=== PATIENT | male | born 1955 | race Caucasian/White ===

== ENCOUNTER 2019-08-31 15:42 | Emergency (ER) | payer MEDICAID, MEDICARE ==
[~2019-08-31] VITALS: Ht 165.1 cm; Wt 103.0 kg
[~2019-08-31 15:42] MED LIST: ALBU6.7H IH; AMLO10TA80 PO; ATOR40TA70 PO; GUAI600T44 PO; LEVE500T9 PO; LOSA25TA26 PO; MIRT30TA PO; P50 PO; PULM50 HHN; QUET300T2 PO; TUSSL PO
[2019-08-31] MEDS ORDERED: ONDANSETRON HCL 4MG/2ML INJ IV STA (16:01)
[2019-08-31] MEDS ORDERED: MORPHINE SULFATE 4 MG/ML CPJ (NOT FOR IM USE) IV STA (16:01)
[2019-08-31 16:32] LABS: BASOPHILS % 0.7 % (0.0-2.0); EOSINOPHILS % 1.2 % (0.0-5.0); HEMATOCRIT. 44.1 % (42.0-52.0); HEMOGLOBIN. 14.7 g/dL (14.0-18.0); LYMPHOCYTES % 30.1 % (20.0-50.0); MEAN CORPUSCULAR HEMOGLOBIN 34.2 pg (28.0-32.0); MEAN CORPUSCULAR VOLUME 102.9 fL (80.0-94.0); MONOCYTES % 10.4 % (2.0-8.0); NEUTROPHILS % 57.6 % (40.0-76.0); PLATELET 223 x1000/uL (130-400); RED BLOOD CELL COUNT 4.28 mill/uL (4.7-6.1); RED CELL DISTRIBUTION WIDTH 15.5 % (11.6-14.6)
[2019-08-31 16:35] LABS: CHLORIDE 108 mEq/L (98-107); PROTHROMBIN TIME 10.5 sec (9.6-11.0)
[2019-08-31 16:39] LABS: ETHANOL BLOOD 184 mg/dL
[2019-08-31] MEDS ORDERED: HYDROCODONE/ACETAMINOPHEN 5/325MG TABLET PO ONE (17:30)
[2019-08-31] MEDS ORDERED: ASPIRIN 81MG TABLET PO ONE (17:30)
[2019-08-31 17:38] LABS: *BARBITURATES SCREEN URINE NEGATIVE (NEGATIVE)
[2019-08-31 17:39] LABS: *AMPHETAMINES SCREEN URINE NEGATIVE (NEGATIVE); *BENZODIAZEPINES SCREEN URINE NEGATIVE (NEGATIVE); *COCAINE SCREEN URINE NEGATIVE (NEGATIVE); METHADONE URINE SCREEN NEGATIVE (NEGATIVE); OPIATES URINE SCREEN NEGATIVE (NEGATIVE)
[2019-08-31 17:40] LABS: CANNABINOID URINE SCREEN NEGATIVE (NEGATIVE); PHENCYCLIDINE URINE SCREEN NEGATIVE (NEGATIVE)
[2019-08-31] MEDS ORDERED: IBUPROFEN 800MG TABLET PO ONE (21:45)
[2019-09-01 09:57] VITALS: BP 163/76
[2019-09-07] MEDS ORDERED: PANT40TA4 PO (16:10)
== END 2019-09-01 12:16 | disposition home or self-care (01) ==
LOC: ER 15:51
DX: F10.129 Alcohol abuse with intoxication, unspecified (principal); M79.661 Pain in right lower leg; Y90.6 Blood alcohol level of 120-199 mg/100 ml; Z88.6 Allergy status to analgesic agent; Z88.3 Allergy status to other anti-infective agents; Z91.041 Radiographic dye allergy status
CPT/HCPCS: 36415; 70450; 71045; 80053; 80305; 80320; 83690; 84484; 85025; 85610; 93005; 96374; 96375; 99284; J2270; J2405; G0480

== ENCOUNTER 2019-09-05 16:28 | Inpatient (IN) | payer MEDICARE, MEDICAID ==
[~2019-09-05] VITALS: Ht 162.6 cm; Wt 104.8 kg
[2019-09-05] MEDS ORDERED: SODIUM CHLORIDE 0.9% 1,000 ML IV ONE (17:27)
[2019-09-05] MEDS ORDERED: DIAZEPAM 5 MG/ML 2ML CPJ IV ONE (17:30)
[2019-09-05 18:40] LABS: BASOPHILS % 0.6 % (0.0-2.0); EOSINOPHILS % 0.2 % (0.0-5.0); HEMATOCRIT. 47.1 % (42.0-52.0); HEMOGLOBIN. 15.7 g/dL (14.0-18.0); LYMPHOCYTES % 16.9 % (20.0-50.0); MEAN CORPUSCULAR HEMOGLOBIN 33.9 pg (28.0-32.0); MEAN CORPUSCULAR VOLUME 101.6 fL (80.0-94.0); MONOCYTES % 9.8 % (2.0-8.0); NEUTROPHILS % 72.5 % (40.0-76.0); PLATELET 204 x1000/uL (130-400); RED BLOOD CELL COUNT 4.64 mill/uL (4.7-6.1); RED CELL DISTRIBUTION WIDTH 15.5 % (11.6-14.6)
[2019-09-05 18:45] LABS: CHLORIDE 101 mEq/L (98-107)
[2019-09-05 18:48] LABS: ETHANOL BLOOD < 10 mg/dL
[2019-09-05] MEDS ORDERED: ACETAMINOPHEN 650MG SUPP PR PRN (22:45)
[2019-09-05] MEDS ORDERED: ACETAMINOPHEN 325MG TABLET PO PRN (22:45)
[2019-09-05] MEDS ORDERED: GUAIFENESIN 200MG/10ML SUGAR FREE UDC PO PRN (22:45)
[2019-09-05] MEDS ORDERED: ACETAMINOPHEN 650MG/20.3ML UDC GT PRN (22:45)
[2019-09-05] MEDS ORDERED: DIPHENHYDRAMINE 50MG/ML VIAL IV PRN (22:45)
[2019-09-05] MEDS ORDERED: IPRATROPIUM/ALBUTEROL 0.5-3(2.5)MG/3ML NEB HHN PRN (22:45)
[2019-09-05] MEDS ORDERED: MAGNESIUM/ALUMINUM HYDROXIDE/SIMETHICONE 30ML UDC PO PRN (22:45)
[2019-09-05] MEDS ORDERED: NA PHOS,M-B/NA PHOS,DI-BA ENEMA 118ML PR PRN (22:45)
[2019-09-05] MEDS ORDERED: ONDANSETRON HCL 4MG/2ML INJ IV PRN (22:45)
[2019-09-05 22:49] VITALS: BP_SYST 152; BP_SYST 153; BP_DIAS 83
[2019-09-05] MEDS: HYDROCODONE/ACETAMINOPHEN 5/325MG TABLET PO PRN (23:44)
[2019-09-06] MEDS: DEXT 5%/0.45% NACL 1000ML 1,000 ML IV SCH ×3 (01:59→18:44)
[2019-09-06 04:00] VITALS: BP 130/52
[2019-09-06] MEDS ORDERED: LORA0.5T2 PO (04:37)
[2019-09-06] MEDS ORDERED: CLON0.1T PO (04:38)
[2019-09-06] MEDS ORDERED: ATEN-42 PO (04:41)
[2019-09-06] MEDS ORDERED: QUET100T33 PO (04:41)
[2019-09-06] MEDS ORDERED: MECL-109 PO (04:43)
[2019-09-06] MEDS ORDERED: BENA20TA10 PO (04:44)
[2019-09-06] MEDS ORDERED: PANT40TA4 PO (04:46)
[2019-09-06] MEDS: SODIUM CHLORIDE 0.9% INJ 3ML FLUSH IVF SCH ×3 (05:33→21:42)
[2019-09-06] MEDS: CHLORDIAZEPOXIDE 25MG CAPSULE PO SCH ×3 (05:34→22:09)
[2019-09-06] MEDS: HYDROCODONE/ACETAMINOPHEN 5/325MG TABLET PO PRN (05:35)
[2019-09-06 06:27] LABS: CHLORIDE 103 mEq/L (98-107)
[2019-09-06 06:34] LABS: LDL CHOLESTEROL 82 mg/dL (5-100)
[2019-09-06 06:35] LABS: CREATINE KINASE 264 IU/L (39-308); HDL CHOLESTEROL 50 mg/dL (40-59)
[2019-09-06 06:38] LABS: CREATINE KINASE MB FRACTION 2.4 ng/mL (0.5-3.6)
[2019-09-06] MEDS: LORAZEPAM 2MG/ML CPJ IV PRN ×3 (06:50→20:34)
[2019-09-06 07:00] LABS: BASOPHILS % 0.6 % (0.0-2.0); HEMATOCRIT. 44.7 % (42.0-52.0); HEMOGLOBIN. 15.1 g/dL (14.0-18.0); LYMPHOCYTES % 30.4 % (20.0-50.0); MEAN CORPUSCULAR HEMOGLOBIN 34.4 pg (28.0-32.0); MEAN PLATELET VOLUME 8.5 fl (7.4-10.4); MONOCYTES % 11.1 % (2.0-8.0); NEUTROPHILS % 56.9 % (40.0-76.0); PLATELET 195 x1000/uL (130-400); RED BLOOD CELL COUNT 4.38 mill/uL (4.7-6.1); RED CELL DISTRIBUTION WIDTH 15.6 % (11.6-14.6)
[2019-09-06 08:00] VITALS: BP 141/70
[2019-09-06] MEDS: HYDROCODONE/ACETAMINOPHEN 10/325MG TABLET PO PRN ×3 (09:36→21:39)
[2019-09-06] MEDS: FOLIC ACID 1MG TABLET PO SCH (09:37)
[2019-09-06] MEDS: DOCUSATE SODIUM 100MG CAPSULE PO PRN ×2 (09:37→16:57)
[2019-09-06] MEDS: THIAMINE HCL 100MG TABLET PO SCH (09:37)
[2019-09-06] MEDS: ENOXAPARIN 30MG/0.3ML SYR SUBCUT SCH ×2 (09:38→20:35)
[2019-09-06] MEDS ORDERED: POTASSIUM CHLORIDE 20MEQ TABLET SR PO SCH (11:15)
[2019-09-06] MEDS ORDERED: BISACODYL 5MG TABLET PO SCH (11:15)
[2019-09-06 11:56] VITALS: BP 153/68
[2019-09-06] MEDS ORDERED: LACTULOSE 20G/30ML UDC PO SCH (12:00)
[2019-09-06] MEDS: FAMOTIDINE 20MG/2ML VIAL IV SCH (12:07)
[2019-09-06 16:00] VITALS: BP 133/70
[2019-09-07] MEDS: HYDROCODONE/ACETAMINOPHEN 10/325MG TABLET PO PRN ×4 (04:50→22:35)
[2019-09-07] MEDS: CHLORDIAZEPOXIDE 25MG CAPSULE PO SCH (05:24)
[2019-09-07] MEDS: DEXT 5%/0.45% NACL 1000ML 1,000 ML IV SCH ×2 (05:25→16:35)
[2019-09-07] MEDS: SODIUM CHLORIDE 0.9% INJ 3ML FLUSH IVF SCH ×3 (05:25→22:36)
[2019-09-07] MEDS: LORAZEPAM 2MG/ML CPJ IV PRN ×3 (06:47→18:49)
[2019-09-07] MEDS ORDERED: DIATR MEGLU/DIATRIZOATE SOLN 30ML PO NR (09:00)
[2019-09-07] MEDS: FOLIC ACID 1MG TABLET PO SCH (09:28)
[2019-09-07] MEDS: THIAMINE HCL 100MG TABLET PO SCH (09:28)
[2019-09-07] MEDS: FAMOTIDINE 20MG/2ML VIAL IV SCH (09:28)
[2019-09-07] MEDS: ENOXAPARIN 30MG/0.3ML SYR SUBCUT SCH ×2 (09:28→22:36)
[2019-09-07] MEDS: PANTOPRAZOLE 40MG DR TABLET PO SCH (09:32)
[2019-09-07 10:16] LABS: EOSINOPHILS % 2.5 % (0.0-5.0); HEMATOCRIT. 42.7 % (42.0-52.0); HEMOGLOBIN. 14.3 g/dL (14.0-18.0); MEAN CORPUSCULAR HEMOGLOBIN 34.3 pg (28.0-32.0); MEAN CORPUSCULAR VOLUME 102.7 fL (80.0-94.0); MEAN PLATELET VOLUME 8.3 fl (7.4-10.4); MONOCYTES % 10.7 % (2.0-8.0); NEUTROPHILS % 56.8 % (40.0-76.0); PLATELET 161 x1000/uL (130-400); RED BLOOD CELL COUNT 4.16 mill/uL (4.7-6.1); RED CELL DISTRIBUTION WIDTH 15.1 % (11.6-14.6)
[2019-09-07 10:21] LABS: INR 1.1; PROTHROMBIN TIME 10.8 sec (9.6-11.0)
[2019-09-07] MEDS ORDERED: BARIUM SULFATE 450ML ORAL SUSP PO NR (10:30)
[2019-09-07 10:34] LABS: CHLORIDE 106 mEq/L (98-107)
[2019-09-07] MEDS ORDERED: DIATR MEGLU/DIATRIZOATE SOLN 30ML PO SCH (13:00)
[2019-09-07] MEDS ORDERED: PANT40TA4 PO (16:10)
[2019-09-07 20:00] VITALS: BP 156/69
[2019-09-08] VITALS: BP 143/81
[2019-09-08] MEDS: LORAZEPAM 2MG/ML CPJ IV PRN ×4 (00:50→23:38)
[2019-09-08] MEDS: DEXT 5%/0.45% NACL 1000ML 1,000 ML IV SCH ×3 (00:50→23:39)
[2019-09-08 04:00] VITALS: BP 150/84
[2019-09-08] MEDS: SODIUM CHLORIDE 0.9% INJ 3ML FLUSH IVF SCH ×3 (05:10→20:41)
[2019-09-08 06:51] LABS: HEMATOCRIT 42.4 % (42.0-52.0); HEMOGLOBIN 14.4 g/dL (14.0-18.0); MEAN CORPUSCULAR HEMOGLOBIN 34.5 pg (28.0-32.0); MEAN CORPUSCULAR VOLUME 102.1 fL (80.0-94.0); PLATELET 156 x1000/uL (130-400); RED BLOOD CELL COUNT 4.16 mill/uL (4.7-6.1); RED CELL DISTRIBUTION WIDTH 15.2 % (11.6-14.6)
[2019-09-08 06:52] LABS: CHLORIDE 106 mEq/L (98-107)
[2019-09-08 08:00] VITALS: BP 138/82
[2019-09-08] MEDS: PANTOPRAZOLE 40MG DR TABLET PO SCH (08:40)
[2019-09-08] MEDS: THIAMINE HCL 100MG TABLET PO SCH (08:41)
[2019-09-08] MEDS: FOLIC ACID 1MG TABLET PO SCH (08:41)
[2019-09-08] MEDS: ENOXAPARIN 30MG/0.3ML SYR SUBCUT SCH ×3 (08:42→20:54)
[2019-09-08] MEDS: HYDROCODONE/ACETAMINOPHEN 10/325MG TABLET PO PRN ×3 (09:02→20:43)
[2019-09-08] MEDS: FAMOTIDINE 20MG/2ML VIAL IV SCH (09:36)
[2019-09-08 12:00] VITALS: BP 149/74
[2019-09-08 16:00] VITALS: BP 156/93
[2019-09-08 20:00] VITALS: BP 170/99
[2019-09-08] MEDS: CLONIDINE 0.1MG TABLET PO PRN (20:49)
[2019-09-09] VITALS: BP 161/79
[2019-09-09] MEDS: HYDROCODONE/ACETAMINOPHEN 10/325MG TABLET PO PRN ×3 (01:45→15:32)
[2019-09-09 03:52] VITALS: BP 140/75
[2019-09-09] MEDS: LORAZEPAM 2MG/ML CPJ IV PRN ×2 (05:31→11:38)
[2019-09-09] MEDS: SODIUM CHLORIDE 0.9% INJ 3ML FLUSH IVF SCH ×2 (05:31→14:00)
[2019-09-09 08:00] VITALS: BP 146/90
[2019-09-09] MEDS: FAMOTIDINE 20MG/2ML VIAL IV SCH (09:00)
[2019-09-09] MEDS: ENOXAPARIN 30MG/0.3ML SYR SUBCUT SCH ×2 (09:00→09:51)
[2019-09-09] MEDS: FOLIC ACID 1MG TABLET PO SCH (09:48)
[2019-09-09] MEDS: THIAMINE HCL 100MG TABLET PO SCH (09:48)
[2019-09-09 12:00] VITALS: BP 162/102
[2019-09-09] MEDS: CLONIDINE 0.1MG TABLET PO PRN (12:31)
[2019-09-09] MEDS: DEXT 5%/0.45% NACL 1000ML 1,000 ML IV SCH ×2 (14:30→16:44)
[2019-09-09 16:00] VITALS: BP 141/81
[2019-09-09 17:53] VITALS: BP 141/81
== END 2019-09-09 20:05 | disposition home or self-care (01) | DRG 392 ==
LOC: ER 16:36 → 7WST 20:23 → EDBEDREQ 20:28 → EDBEDREQTM 20:28 → ENRESERV 22:04
PROVIDERS: ADMIT Family Medicine; ATTEND Family Medicine
DX: K29.20 Alcoholic gastritis without bleeding (principal); F10.239 Alcohol dependence with withdrawal, unspecified; I10 Essential (primary) hypertension; J44.9 Chronic obstructive pulmonary disease, unspecified; F41.9 Anxiety disorder, unspecified; E87.6 Hypokalemia; F32.9 Major depressive disorder, single episode, unspecified; K70.0 Alcoholic fatty liver; K74.60 Unspecified cirrhosis of liver; Z59.0 Homelessness; Z88.9 Allergy status to unspecified drugs, medicaments and biological substances; Z88.8 Allergy status to other drugs, medicaments and biological substances; Z86.73 Personal history of transient ischemic attack (TIA), and cerebral infarction without residual deficits; Z88.1 Allergy status to other antibiotic agents; Z91.041 Radiographic dye allergy status; Z79.899 Other long term (current) drug therapy
CPT/HCPCS: 36415; 71045; 74176; 80048; 80061; 80076; 80320; 82550; 82553; 83605; 84484; 85027; 85651; 93005; 96361; 96374; 97162; 99285; C1893; J1650; J2060; J3490; J7030; G0480

== ENCOUNTER 2019-11-03 16:35 | Inpatient (IN) | payer MEDICARE, MEDICAID ==
[~2019-11-03] VITALS: Ht 157.5 cm; Wt 44.6 kg
[~2019-11-03 16:35] MED LIST changes: -ALBU6.7H IH; +ALBU6.7H11 IH; +ATEN-42 PO; +BENA20TA10 PO; +CLON0.1T PO; +LORA0.5T2 PO; +MECL-159 PO; +PANT40TA4 PO; +QUET100T33 PO
[2019-11-03] MEDS ORDERED: MORPHINE SULFATE 4 MG/ML CPJ (NOT FOR IM USE) IV STA (17:14)
[2019-11-03] MEDS ORDERED: ONDANSETRON HCL 4MG/2ML INJ IV STA (17:14)
[2019-11-03] MEDS ORDERED: SODIUM CHLORIDE 0.9% 1,000 ML IV ONE ×2 (17:14→18:07)
[2019-11-03 18:07] LABS: BASOPHILS % 0.9 % (0.0-2.0); EOSINOPHILS % 0.7 % (0.0-5.0); HEMATOCRIT. 46.8 % (42.0-52.0); HEMOGLOBIN. 15.5 g/dL (14.0-18.0); LYMPHOCYTES % 28.4 % (20.0-50.0); MEAN CORPUSCULAR HEMOGLOBIN 34.3 pg (28.0-32.0); MEAN CORPUSCULAR VOLUME 103.7 fL (80.0-94.0); MEAN PLATELET VOLUME 8.3 fl (7.4-10.4); MONOCYTES % 8.4 % (2.0-8.0); NEUTROPHILS % 61.6 % (40.0-76.0); PLATELET 207 x1000/uL (130-400); RED BLOOD CELL COUNT 4.51 mill/uL (4.7-6.1)
[2019-11-03 18:15] LABS: CHLORIDE 110 mEq/L (98-107)
[2019-11-03 18:19] LABS: ETHANOL BLOOD 153 mg/dL
[2019-11-03 18:20] LABS: D-DIMER 0.59 mg/L FEU (<0.50); PARTIAL THROMBOPLASTIN TIME 26.8 sec (23.4-31.0); PROTHROMBIN TIME 10.6 sec (9.6-11.0)
[2019-11-03 18:21] LABS: CLARITY URINE CLEAR (CLEAR); COLOR URINE YELLOW (YELLOW); KETONES URINE NEGATIVE (NEGATIVE); LEUKOCYTE ESTERASE URINE TRACE (NEGATIVE); NITRITE URINE NEGATIVE (NEGATIVE); OCCULT BLOOD URINE 1+ (NEGATIVE); PH URINE 6.5 (4.5-8.0); PROTEIN URINE NEGATIVE (NEGATIVE); SPECIFIC GRAVITY URINE 1.014 (1.005-1.030); UROBILINOGEN URINE 0.2 E.U./dL (0.2-1.0)
[2019-11-03 18:40] LABS: *AMPHETAMINES SCREEN URINE NEGATIVE (NEGATIVE); *BARBITURATES SCREEN URINE NEGATIVE (NEGATIVE)
[2019-11-03 18:41] LABS: *BENZODIAZEPINES SCREEN URINE NEGATIVE (NEGATIVE); *COCAINE SCREEN URINE NEGATIVE (NEGATIVE); CANNABINOID URINE SCREEN PRESUMTIVE POSITIVE (NEGATIVE); METHADONE URINE SCREEN NEGATIVE (NEGATIVE); OPIATES URINE SCREEN NEGATIVE (NEGATIVE); PHENCYCLIDINE URINE SCREEN NEGATIVE (NEGATIVE)
[2019-11-03] MEDS ORDERED: LEVOFLOXACIN 750MG PREMIX 150 ML IV ONE (21:15)
[2019-11-03] MEDS ORDERED: SODIUM CHLORIDE 0.9% 1000ML BAG (SEPSIS BOLUS) IV ONE (21:15)
[2019-11-04] VITALS (14 sets, daily range): BP systolic 120–158; BP diastolic 54–89
[2019-11-04] MEDS ORDERED: ONDANSETRON HCL 4MG/2ML INJ IV PRN (02:00)
[2019-11-04] MEDS ORDERED: ACETAMINOPHEN 325MG TABLET PO PRN (02:00)
[2019-11-04] MEDS ORDERED: DIPHENHYDRAMINE 50MG/ML VIAL IV PRN (02:00)
[2019-11-04] MEDS ORDERED: IPRATROPIUM/ALBUTEROL 0.5-3(2.5)MG/3ML NEB HHN PRN (02:15)
[2019-11-04] MEDS: SODIUM CHLORIDE 0.9% 1,000 ML IV SCH ×2 (02:39→13:21)
[2019-11-04 09:10] LABS: BASOPHILS % 1.3 % (0.0-2.0); EOSINOPHILS % 2.4 % (0.0-5.0); HEMATOCRIT. 44.2 % (42.0-52.0); HEMOGLOBIN. 14.9 g/dL (14.0-18.0); MEAN CORPUSCULAR HEMOGLOBIN 34.7 pg (28.0-32.0); MEAN PLATELET VOLUME 8.2 fl (7.4-10.4); MONOCYTES % 9.9 % (2.0-8.0); NEUTROPHILS % 61.4 % (40.0-76.0); PLATELET 172 x1000/uL (130-400); RED BLOOD CELL COUNT 4.29 mill/uL (4.7-6.1)
[2019-11-04 09:27] LABS: CHLORIDE 111 mEq/L (98-107)
[2019-11-04] MEDS: LEVETIRACETAM 500MG/5ML CUP PO SCH ×2 (09:28→21:30)
[2019-11-04] MEDS: QUETIAPINE FUMARATE 50MG TABLET PO SCH ×2 (09:28→21:30)
[2019-11-04] MEDS: KETOROLAC 30MG/ML VIAL IV PRN (21:43)
[2019-11-04] MEDS: CLONIDINE 0.1MG TABLET PO PRN (21:48)
[2019-11-05] VITALS (12 sets, daily range): BP systolic 100–175; BP diastolic 30–84
[2019-11-05] MEDS: BUDESONIDE 0.5MG/2ML NEB HHN SCH ×2 (07:53→22:45)
[2019-11-05] MEDS: IPRATROPIUM/ALBUTEROL 0.5-3(2.5)MG/3ML NEB HHN PRN ×2 (07:53→16:15)
[2019-11-05] MEDS: QUETIAPINE FUMARATE 50MG TABLET PO SCH ×2 (09:59→20:45)
[2019-11-05] MEDS: LEVETIRACETAM 500MG/5ML CUP PO SCH ×2 (09:59→20:45)
[2019-11-05] MEDS: KETOROLAC 30MG/ML VIAL IV PRN ×2 (13:00→19:15)
[2019-11-05] MEDS: CLONIDINE 0.1MG TABLET PO PRN (20:52)
[2019-11-05] MEDS ORDERED: NAPROXEN 250MG TABLET PO SCH (21:00)
[2019-11-05] MEDS ORDERED: NAPROXEN 250MG TABLET PO PRN (21:00)
[2019-11-06] VITALS (12 sets, daily range): BP systolic 99–169; BP diastolic 45–92
[2019-11-06] MEDS: KETOROLAC 30MG/ML VIAL IV PRN ×2 (07:49→17:34)
[2019-11-06] MEDS: LEVETIRACETAM 500MG/5ML CUP PO SCH (08:05)
[2019-11-06] MEDS: CLONIDINE 0.1MG TABLET PO PRN ×2 (08:05→12:34)
[2019-11-06] MEDS: QUETIAPINE FUMARATE 50MG TABLET PO SCH (08:06)
[2019-11-06] MEDS: BUDESONIDE 0.5MG/2ML NEB HHN SCH (08:40)
[2019-11-06] MEDS ORDERED: HYDROCODONE/ACETAMINOPHEN 10/325MG TABLET PO PRN (13:15)
[2019-11-06] MEDS ORDERED: AMLODIPINE 10MG TABLET PO SCH (13:30)
== END 2019-11-06 18:52 | DRG 392 ==
LOC: ER 16:35 → 3WST 21:52 → ENRESERV 23:47
PROVIDERS: ADMIT Internal Medicine; ATTEND Internal Medicine
DX: K21.9 Gastro-esophageal reflux disease without esophagitis (principal); Z68.1 Body mass index [BMI] 19.9 or less, adult; K76.0 Fatty (change of) liver, not elsewhere classified; I11.9 Hypertensive heart disease without heart failure; E11.9 Type 2 diabetes mellitus without complications; F20.9 Schizophrenia, unspecified; K57.90 Diverticulosis of intestine, part unspecified, without perforation or abscess without bleeding; F10.10 Alcohol abuse, uncomplicated; F99 Mental disorder, not otherwise specified; F17.210 Nicotine dependence, cigarettes, uncomplicated; Z79.899 Other long term (current) drug therapy; Z88.8 Allergy status to other drugs, medicaments and biological substances; Z59.0 Homelessness; Z86.73 Personal history of transient ischemic attack (TIA), and cerebral infarction without residual deficits; Z88.1 Allergy status to other antibiotic agents; Z91.041 Radiographic dye allergy status
CPT/HCPCS: 36415; 71045; 74176; 76775; 78582; 80048; 80053; 80305; 80320; 81003; 82962; 83605; 83735; 83880; 84484; 85025; 85379; 93005; 93306; 93970; 94640; 99291; A9558; J1885; J1956; J2405; J7030; J7620; J7626; G0480

== ENCOUNTER 2019-12-23 20:43 | Emergency (ER) | payer MEDICARE, MEDICAID ==
[~2019-12-23] VITALS: Ht 165.1 cm; Wt 92.0 kg
[2019-12-24] MEDS ORDERED: SODIUM CHLORIDE 0.9% 1,000 ML IV ONE (01:20)
[2019-12-24] MEDS ORDERED: MORPHINE SULFATE 4 MG/ML CPJ (NOT FOR IM USE) IV STA (01:20)
[2019-12-24] MEDS ORDERED: ONDANSETRON HCL 4MG/2ML INJ IV STA (01:20)
[2019-12-24 01:44] LABS: BASOPHILS % 1.2 % (0.0-2.0); EOSINOPHILS % 5.1 % (0.0-5.0); HEMATOCRIT. 40.6 % (42.0-52.0); HEMOGLOBIN. 13.8 g/dL (14.0-18.0); LYMPHOCYTES % 34.2 % (20.0-50.0); MEAN CORPUSCULAR HEMOGLOBIN 33.8 pg (28.0-32.0); MEAN CORPUSCULAR VOLUME 99.2 fL (80.0-94.0); MEAN PLATELET VOLUME 7.7 fl (7.4-10.4); MONOCYTES % 9.6 % (2.0-8.0); NEUTROPHILS % 49.9 % (40.0-76.0); PLATELET 202 x1000/uL (130-400); RED BLOOD CELL COUNT 4.09 mill/uL (4.7-6.1); RED CELL DISTRIBUTION WIDTH 14.7 % (11.6-14.6)
[2019-12-24 01:46] LABS: CHLORIDE 105 mEq/L (98-107)
[2019-12-24 01:49] LABS: ETHANOL BLOOD 29 mg/dL
[2019-12-24 08:30] VITALS: BP 157/78
== END 2019-12-24 09:18 | disposition home or self-care (01) ==
LOC: ER 20:43
DX: R10.84 Generalized abdominal pain (principal); Y04.0XXA Assault by unarmed brawl or fight, initial encounter; Y93.89 Activity, other specified; Y92.89 Other specified places as the place of occurrence of the external cause; F10.129 Alcohol abuse with intoxication, unspecified; Y90.1 Blood alcohol level of 20-39 mg/100 ml
CPT/HCPCS: 36415; 71045; 74176; 80053; 80320; 83690; 85025; 96374; 96375; 99285; J2270; J2405; J7030; G0480

== ENCOUNTER 2019-12-27 14:24 | Emergency (ER) | payer MEDICARE, MEDICAID ==
[~2019-12-27] VITALS: Ht 162.6 cm; Wt 118.0 kg
[2019-12-27] MEDS ORDERED: MORPHINE SULFATE 4 MG/ML CPJ (NOT FOR IM USE) IV ONE (15:00)
[2019-12-27] MEDS ORDERED: ONDANSETRON HCL 4MG/2ML INJ IV ONE (15:00)
[2019-12-27 15:13] LABS: BASOPHILS % 1.3 % (0.0-2.0); EOSINOPHILS % 3.6 % (0.0-5.0); HEMATOCRIT. 45.2 % (42.0-52.0); HEMOGLOBIN. 15.6 g/dL (14.0-18.0); LYMPHOCYTES % 34.1 % (20.0-50.0); MEAN CORPUSCULAR HEMOGLOBIN 34.1 pg (28.0-32.0); MEAN CORPUSCULAR VOLUME 98.9 fL (80.0-94.0); MONOCYTES % 10.5 % (2.0-8.0); NEUTROPHILS % 50.5 % (40.0-76.0); RED BLOOD CELL COUNT 4.57 mill/uL (4.7-6.1); RED CELL DISTRIBUTION WIDTH 15.2 % (11.6-14.6)
[2019-12-27 15:21] LABS: MEAN PLATELET VOLUME 7.5 fl (7.4-10.4); PLATELET 251 x1000/uL (130-400)
[2019-12-27 15:23] LABS: CHLORIDE 106 mEq/L (98-107)
[2019-12-27] MEDS ORDERED: ATENOLOL 25MG TABLET PO ONE (17:45)
[2019-12-28 11:15] VITALS: BP 148/87
== END 2019-12-28 11:39 | disposition home or self-care (01) ==
LOC: ER 14:24
DX: S20.219A Contusion of unspecified front wall of thorax, initial encounter (principal); S39.91XA Unspecified injury of abdomen, initial encounter; I21.9 Acute myocardial infarction, unspecified; Z88.8 Allergy status to other drugs, medicaments and biological substances; Z88.1 Allergy status to other antibiotic agents; Z79.899 Other long term (current) drug therapy; X58.XXXA Exposure to other specified factors, initial encounter; Y93.89 Activity, other specified; Y92.89 Other specified places as the place of occurrence of the external cause; Y99.8 Other external cause status
CPT/HCPCS: 36415; 71045; 71250; 74176; 80053; 82962; 83880; 84484; 85025; 93005; 96374; 96375; 99285; J2270; J2405

== ENCOUNTER 2019-12-28 19:44 | Emergency (ER) | payer MEDICARE, MEDICAID ==
[~2019-12-28] VITALS: Ht 162.6 cm; Wt 91.0 kg
[2019-12-28] MEDS ORDERED: IBUPROFEN 600MG TABLET PO STA (21:31)
[2019-12-28 21:46] LABS: BASOPHILS % 0.8 % (0.0-2.0); EOSINOPHILS % 2.1 % (0.0-5.0); HEMATOCRIT. 45.5 % (42.0-52.0); HEMOGLOBIN. 15.6 g/dL (14.0-18.0); LYMPHOCYTES % 25.6 % (20.0-50.0); MEAN CORPUSCULAR VOLUME 99.3 fL (80.0-94.0); MEAN PLATELET VOLUME 7.5 fl (7.4-10.4); MONOCYTES % 10.7 % (2.0-8.0); NEUTROPHILS % 60.8 % (40.0-76.0); PLATELET 233 x1000/uL (130-400); RED BLOOD CELL COUNT 4.58 mill/uL (4.7-6.1); RED CELL DISTRIBUTION WIDTH 14.9 % (11.6-14.6)
[2019-12-28 21:53] LABS: CHLORIDE 102 mEq/L (98-107)
[2019-12-29] MEDS ORDERED: ACETAMINOPHEN 325MG TABLET PO ONE
[2019-12-29] MEDS ORDERED: POTASSIUM CHLORIDE 20MEQ TABLET SR PO ONE (00:30)
[2019-12-29] MEDS ORDERED: ATENOLOL 25MG TABLET PO ONE (07:30)
[2019-12-29 09:10] VITALS: BP 171/89
== END 2019-12-29 09:15 | disposition home or self-care (01) ==
LOC: ER 19:44
DX: M54.2 Cervicalgia (principal); R51 Headache; E87.6 Hypokalemia; I10 Essential (primary) hypertension; I25.2 Old myocardial infarction; Z86.73 Personal history of transient ischemic attack (TIA), and cerebral infarction without residual deficits; Z98.890 Other specified postprocedural states; Z79.899 Other long term (current) drug therapy; Z91.041 Radiographic dye allergy status; Z88.9 Allergy status to unspecified drugs, medicaments and biological substances
CPT/HCPCS: 36415; 80053; 84484; 85025; 93005; 99285

== ENCOUNTER 2020-09-19 16:13 | Emergency (ER) | payer MEDICARE, MEDICAID ==
[~2020-09-19] VITALS: Ht 175.3 cm; Wt 91.0 kg
[2020-09-19 16:23] VITALS: BP 0/0
== END 2020-09-19 17:25 | disposition expired ==
LOC: ER 16:13
DX: I46.9 Cardiac arrest, cause unspecified (principal); Z66 Do not resuscitate; J44.9 Chronic obstructive pulmonary disease, unspecified; F10.20 Alcohol dependence, uncomplicated; Y90.9 Presence of alcohol in blood, level not specified; Z87.891 Personal history of nicotine dependence
CPT/HCPCS: 99285